=== PATIENT | male | born 1965 | race Caucasian/White ===

== ENCOUNTER 2018-01-25 15:54 | Emergency (ER) | payer MEDICAID ==
[2018-01-25] MEDS: IBUPROFEN 600 MG TAB PO (16:56)
== END 2018-01-25 17:50 | disposition home or self-care (01) ==
LOC: FTE 15:54
DX: S16.1XXA Strain of muscle, fascia and tendon at neck level, initial encounter (principal); V49.9XXA Car occupant (driver) (passenger) injured in unspecified traffic accident, initial encounter
CPT/HCPCS: 72040; 99283-25